=== PATIENT | female | born 1955 | race Caucasian/White ===

== ENCOUNTER 2018-02-18 12:55 | Inpatient (IN) | payer BC ==
[2018-02-18 15:26] VITALS: BMI 29.2
--- NOTE | 2018-02-18 19:20 | HP ---
CIWA Score - CIWA Score Nausea/Vomitin-No Nausea/No Vomiting Muscle Tremors: 4-Moderate,w/Arms Extend Anxiety: 5 Agitation: 5 Paroxysmal Sweats: 5 Orientation: 0-Oriented (PLACE) Tacttile Disturbances: 0-None Auditory Disturbances: 0-None Visual Disturbances: 0-None Headache: 0-None Present CIWA-Ar Total Score: 19 Admission ROS BHS - HPI Chief Complaint: C/O WITHDRAWAL SX'S. SEEKING DETOX FOR ALCOHOLISM Allergies/Adverse Reactions: Allergies Allergy/AdvReac Type Severity Reaction Status Date / Time No Known Allergies Allergy Verified 02/18/18 18:08 History of Present Illness: 62 Y.O. FEMALE WITH EXTENSIVE HX/O ALCOHOLISM HERE FOR DETOX. CLIENT IS KNOWN TO OTHER INPATIENT DETOX. LAST 4 MONTHS AGO AT [facility]. THIS IS HER FIRST TIME HERE. REFERRED BY FRIENDS. REPORTS LONGEST CLEAN TIME 4 YEARS. DENIES HX/O SEIZURES AND BLACK OUTS. UTOX + FOR JARVIS REPORTS WAS IN [facility] FOR 5 DAYS 2 WEEKS AG0 FOR INTOXICATION. CLIENT HAS NEVER STOPPED DRINKING SINCE DC AND PRESENTS INTOICATED WITH WITHDRAWAL SX'S ELAVTED B/P AND TACHYCARDIA. SHE IS MENTATING WELL BUT IS DISHEVELED MALODUROUS AND APPEARS UNKEPT. Exam Limitations: Intoxication - Ebola screening Have you traveled outside of the country in the last 21 days: No Have you had contact with anyone from an Ebola affected area: No Have you been sick,other than usual withdrawal symptoms: No Do you have a fever: No - Review of Systems Constitutional: Chills, Night Sweats, Changes in sleep EENT: reports: Other (MISSING TEETH) Respiratory: reports: No Symptoms reported Cardiac: reports: No Symptoms Reported GI: reports: No Symptoms Reported : reports: Incontinence (WHEN INTOXICATED) Musculoskeletal: reports: Back Pain Integumentary: reports: Other (VITILIGO) Neuro: reports: No Symptoms reported Endocrine: reports: Other (HX/O DM) Hematology: reports: No Symptoms Reported Psychiatric: reports: Depressed Other Systems: Reviewed and Negative Patient History - Patient Medical History Hx Anemia: No Hx Asthma: No Hx Chronic Obstructive Pulmonary Disease (COPD): No Hx Cancer: No Hx Cardiac Disorders: No Hx Congestive Heart Failure: No Hx Hypertension: Yes Hx Hypercholesterolemia: Yes Hx Pacemaker: No HX Cerebrovascular Accident: No Hx Seizures: No Hx Dementia: No Hx Diabetes: Yes Hx Gastrointestinal Disorders: No Hx Liver Disease: No Hx Genitourinary Disorders: No Hx Sexually Transmitted Disorders: No Hx Renal Disease (ESRD): No Hx Thyroid Disease: No Hx Human Immunodeficiency Virus (HIV): No Hx Hepatitis C: No Hx Depression: Yes Hx Suicide Attempt: No Hx Bipolar Disorder: No Hx Schizophrenia: No Other Medical History: DENIES - Patient Surgical History Past Surgical History: No Hx Neurologic Surgery: No Hx Cataract Extraction: No Hx Cardiac Surgery: No Hx Lung Surgery: No Hx Breast Surgery: No Hx Breast Biopsy: No Hx Abdominal Surgery: No Hx Appendectomy: No Hx Cholecystectomy: No Hx Genitourinary Surgery: No Hx Section: No Hx Orthopedic Surgery: No Anesthesia Reaction: No - PPD History Previous Implant?: Yes Documented Results: Negative w/o proof Implanted On Prior [facility] Admission?: No PPD to be Administered?: Yes - Reproductive History Patient is a Female of Child Bearing Age (11 -55 yrs old): No Patient : No (NEG C) - Smoking Cessation Smoking history: Current every day smoker Have you smoked in the past 12 months: Yes Aproximately how many cigarettes per day: 20 Cigars Per Day: 0 Hx Chewing Tobacco Use: No Initiated information on smoking cessation: No 'Breaking Loose' booklet given: 02/18/18 - Substance & Tx. History Hx Alcohol Use: Yes Hx Substance Use: Yes Substance Use Type: Alcohol Hx Substance Use Treatment: Yes ([facility]) - Substances Abused Alcohol Route: Oral Frequency: Daily Amount used: liquor- 1 pint, beer- 1 six pack Age of first use: 11 Date of Last Use: 02/18/18 Family Disease History - Family Disease History Family Disease History: Diabetes: Mother Admission Physical Exam [facility] - Vital Signs Vital Signs: Vital Signs - 24 hr 02/18/18 15:24 Temperature 96.2 F L Pulse Rate 118 H Respiratory 20 Rate Blood Pressure 142/88 - Physical General Appearance: Yes: Disheveled, Mild Distress, Intoxicated, Tremorous, Sweating, Other (UNKEPT, MALODUROUS,) HEENTM: Yes: EOMI, Normocephalic, Normal Voice, VAISHALI, Pharynx Normal, Other ( POOR DENTIITION) Respiratory: Yes: Chest Non-Tender, Lungs Clear, Normal Breath Sounds, No Respiratory Distress, No Accessory Muscle Use Neck: Yes: No masses,lesions,Nodules, Supple, Trachea in good position Breast: Yes: Breast Exam Deferred Cardiology: Yes: Regular Rhythm, Regular Rate, S1, S2, Tachycardia Abdominal: Yes: Normal Bowel Sounds, Non Tender, Soft, Protuberent Genitourinary: Yes: Within Normal Limits Back: Yes: Normal Inspection Musculoskeletal: Yes: full range of Motion, Gait Steady Extremities: Yes: Normal Range of Motion, Non-Tender, Tremors Neurological: Yes: Fully Oriented, Alert, Motor Strength 5/5, Depressed Affect Integumentary: Yes: Warm, Other (VITILIGO SOLIED SKIN SWEATY HAIR POOR SKIN TUGOR) Lymphatic: Yes: Within Normal Limits - Diagnostic (1) Alcohol dependence with uncomplicated withdrawal Current Visit: Yes Status: Acute (2) Nicotine dependence Current Visit: Yes Status: Chronic Qualifiers: Nicotine product type: cigarettes Substance use status: uncomplicated Qualified Code(s): F17.210 - Nicotine dependence, cigarettes, uncomplicated (3) HTN (hypertension) Current Visit: Yes Status: Chronic Qualifiers: Hypertension type: essential hypertension Qualified Code(s): I10 - Essential (primary) hypertension (4) HLD (hyperlipidemia) Current Visit: Yes Status: Chronic Qualifiers: Hyperlipidemia type: unspecified Qualified Code(s): E78.5 - Hyperlipidemia , unspecified (5) Diabetes Current Visit: Yes Status: Chronic Qualifiers: Diabetes mellitus type: type 2 (6) Depression Current Visit: Yes Status: Suspected (7) Vitiligo Current Visit: Yes Status: Chronic (8) Skin turgor poor Current Visit: Yes Status: Acute (9) Alcohol-induced mood disorder with depressive symptoms Current Visit: Yes Status: Suspected Cleared for Admission [facility] - Detox or Rehab [facility] Level of Care: Medically Managed Detox Regimen/Protocol: Librium Claeared for Rehab Admission: No [facility] Breath Alcohol Content Breath Alcohol Content: 0.157 Urine Pregancy Test - Result Urine Test Results: Negative- NO Line Present Urine Drug Screen - Results Drug Screen Negative: No Urine Drug Screen Results: BZO-Benzodiazepines
[2018-02-18] MEDS ORDERED: guaiFENesin/D-METHORPHAN HB 10 ML UNIT-DOSE CUPS PO PRN (19:45)
[2018-02-18] MEDS ORDERED: MAG HYDROX/AL HYDROX/SIMETH 30 ML UNIT-DOSE CUP PO PRN (19:45)
[2018-02-18] MEDS ORDERED: MAGNESIUM HYDROX 2400MG/30ML ORAL SUSPENSION 30 ML CUP PO PRN (19:45)
[2018-02-18] MEDS ORDERED: P-EPHED 60MG/TRIPROLIDI 2.5MG TABLET PO PRN (19:45)
[2018-02-18] MEDS ORDERED: MAGNESIUM CITRATE 300 ML BOTTLE PO PRN (19:45)
[2018-02-18] MEDS ORDERED: ACETAMINOPHEN 325 MG TABLET (FP) PO PRN (19:45)
[2018-02-18] MEDS ORDERED: NICOTINE POLACRILEX 2 MG GUM BC PRN (19:45)
[2018-02-18] MEDS ORDERED: MENTHOL/PHENOL 1 EACH UD MM PRN (19:45)
[2018-02-18] MEDS ORDERED: hydrOXYzine PAMOATE 50 MG CAPSULE (FP) PO PRN (19:45)
[2018-02-18] MEDS ORDERED: IBUPROFEN 400 MG TABLET (FP) PO PRN (19:45)
[2018-02-18] MEDS ORDERED: LOPERAMIDE HCL 2 MG CAPSULE PO PRN (19:45)
[2018-02-18] MEDS: chlordiazePOXIDE HCL 25 MG CAPSULE PO PRN (20:44)
[2018-02-18] MEDS: THIAMINE HCL 100 MG TABLET (FP) PO SCH (22:28)
[2018-02-18] MEDS: chlordiazePOXIDE HCL 25 MG CAPSULE PO SCH (22:28)
[2018-02-18] MEDS: ATORVASTATIN CA 20 MG TABLET (FP) PO SCH (22:28)
[2018-02-19] MEDS: chlordiazePOXIDE HCL 25 MG CAPSULE PO SCH ×4 (06:05→22:17)
[2018-02-19] MEDS: metFORMIN HCL 500 MG TABLET (FP) PO SCH (08:00)
[2018-02-19] MEDS: sitaGLIPtin PHOSPHATE 100 MG TABLET (FP) PO SCH (08:00)
[2018-02-19 10:08] LABS: ALBUMIN 3.7 g/dl (3.4-5.0); ANION GAP 12 (8-16); BLOOD UREA NITROGEN 23 mg/dL (7-18); CALCIUM 9.4 mg/dL (8.5-10.1); CHLORIDE 90 mmol/L (98-107); CO2 31 mmol/L (21-32); CREATININE 0.8 mg/dL (0.55-1.02); GLUCOSE,RANDOM 188 mg/dL (74-106); POTASSIUM 4.4 mmol/L (3.5-5.1); SGOT/AST 70 U/L (15-37); SGPT/ALT 71 U/L (12-78); SODIUM 133 mmol/L (136-145)
--- NOTE | 2018-02-19 10:08 | EKG ---
Test Reason : Blood Pressure : / mmHG Vent. Rate : 107 BPM Atrial Rate : 107 BPM P-R Int : 150 ms QRS Dur : 070 ms QT Int : 314 ms P-R-T Axes : 053 054 067 degrees QTc Int : 419 ms SINUS TACHYCARDIA NONSPECIFIC T WAVE ABNORMALITY ABNORMAL ECG NO PREVIOUS ECGS AVAILABLE Confirmed by JORGE MEDLEY MD ([id number]) on 02/19/2018 10:07:50 AM Referred By: Confirmed By:JORGE MEDLEY MD
[2018-02-19 10:10] LABS: ALK PHOS 107 U/L (45-117); BILIRUBIN,TOTAL 1.1 mg/dL (0.2-1.0); TOT PROT 6.9 g/dl (6.4-8.2)
[2018-02-19 10:11] LABS: HEMATOCRIT 39.1 % (32.4-45.2); HEMOGLOBIN 13.2 GM/dL (10.7-15.3); MCHC 33.8 g/dl (32.0-36.0); MEAN CELL VOLUME 94.5 fl (80-96); MEAN PLT VOLUME 8.5 fl (7.5-11.1); PLATELET COUNT 181 K/MM3 (134-434); RBC 4.14 M/mm3 (3.60-5.2); RDW 15.9 % (11.6-15.6); WHITE BLOOD COUNT 5.6 K/mm3 (4.0-10.0)
--- NOTE | 2018-02-19 10:11 | PN ---
BHS CIWA - CIWA Score Nausea/Vomitin Muscle Tremors: 3 Anxiety: 3 Agitation: 2 Paroxysmal Sweats: 1-Minimal Palms Moist Orientation: 0-Oriented Tacttile Disturbances: 1-Very Mild Itch/Numbness Auditory Disturbances: 1-Very Mild Visual Disturbances: 0-None Headache: 2-Mild CIWA-Ar Total Score: 16 BHS Progress Note (SOAP) Subjective: alert,irritable,anxious,interrupted sleep,tremor Objective: 02/19/18 10:08 Vital Signs Temperature 98.2 F 02/19/18 09:51 Pulse Rate 114 H 02/19/18 09:51 Respiratory Rate 18 02/19/18 09:51 Blood Pressure 135/59 02/19/18 09:51 O2 Sat by Pulse Oximetry (%) ekg sinus tachycardia 107/min qt/qtc /419 no chest pain,no sob,no dizziness Laboratory Last Values POC Glucometer 202 UNITS (80-120) 02/19/18 06:08 02/19/18 10:11 labs pending Assessment: 02/19/18 10:11 withdrawal symptom Plan: continue detox
[2018-02-19] MEDS: METOPROLOL TARTRATE 50 MG TABLET (FP) PO SCH (11:13)
[2018-02-19] MEDS: ASPIRIN 81 MG CHEWABLE TABLETS PO SCH (11:13)
[2018-02-19] MEDS: LISINOPRIL 10 MG TABLET (FP) PO SCH (11:13)
[2018-02-19] MEDS: PRENATAL VITAMINS W/ FOLIC ACID TABLET (FP) PO SCH (11:14)
[2018-02-19] MEDS: NICOTINE 21 MG/24 HOURS TOPICAL PATCH TD SCH (11:14)
--- NOTE | 2018-02-19 16:16 | CONSULT ---
[facility] Psychiatric Consult - Data Date of interview: 02/19/18 Admission source: [facility] Identifying data: Patient is a 62 year old , mother of two, domiciled, and supported by [facility]. This is patient's first admission to detox at [facility]. Pt. admitted to for alcohol dependence. Substance Abuse History: Smoking Cessation. Smoking history: Current every day smoker. Have you smoked in the past 12 months: Yes. Aproximately how many cigarettes per day: 20. Cigars Per Day: 0. Hx Chewing Tobacco Use: No. Initiated information on smoking cessation: No. 'Breaking Loose' booklet given : 02/18/18. - Substance & Tx. History. Hx Alcohol Use: Yes. Hx Substance Use : Yes. Substance Use Type: Alcohol. Hx Substance Use Treatment: Yes ([facility]). - Substances Abused. Alcohol. Route: Oral. Frequency: Daily. Amount used: liquor- 1 pint, beer- 1 six pack. Age of first use: 11. Date of Last Use: Medical History: hypertension, hypercholesterolemia, diabetes Psychiatric History: Patient denies h/o psychiatric hospitalization, outpatient care, and suicide attempt. Physical/Sexual Abuse/Trauma History: Denies. Mental Status Exam - Mental Status Exam Alert and Oriented to: Time, Place, Person Cognitive Function: Good Patient Appearance: Unkempt Mood: Euthymic Affect: Mood Congruent Patient Behavior: Cooperative Speech Pattern: Appropriate Voice Loudness: Moderately Soft/Quiet Thought Process: Goal Oriented Thought Disorder: Not Present Hallucinations: Denies Suicidal Ideation: Denies Homicidal Ideation: Denies Insight/Judgement: Poor Sleep: Fair Appetite: Fair Muscle strength/Tone: Normal Gait/Station: Normal Psychiatric Findings - Problem List ([place] 1, 2,3) (1) Alcohol dependence with uncomplicated withdrawal Current Visit: Yes Status: Acute (2) Nicotine dependence Current Visit: Yes Status: Chronic Qualifiers: Nicotine product type: cigarettes Substance use status: uncomplicated Qualified Code(s): F17.210 - Nicotine dependence, cigarettes, uncomplicated - Initial Treatment Plan Initial Treatment Plan: Psychoeducation provided. Detoxification in progress. Observation.
[2018-02-19] MEDS: MELATONIN 5 MG TABLETS PO PRN (22:17)
[2018-02-19] MEDS: THIAMINE HCL 100 MG TABLET (FP) PO SCH (22:17)
[2018-02-19] MEDS: ATORVASTATIN CA 20 MG TABLET (FP) PO SCH (22:17)
[2018-02-20] MEDS: chlordiazePOXIDE HCL 25 MG CAPSULE PO SCH ×3 (05:14→17:59)
[2018-02-20] MEDS: metFORMIN HCL 500 MG TABLET (FP) PO SCH (05:59)
[2018-02-20] MEDS: sitaGLIPtin PHOSPHATE 100 MG TABLET (FP) PO SCH (05:59)
--- NOTE | 2018-02-20 10:20 | PN ---
[facility] CIWA - CIWA Score Nausea/Vomitin Muscle Tremors: 3 Anxiety: 3 Agitation: 2 Paroxysmal Sweats: 1-Minimal Palms Moist Orientation: 0-Oriented Tacttile Disturbances: 1-Very Mild Itch/Numbness Auditory Disturbances: 1-Very Mild Visual Disturbances: 0-None Headache: 2-Mild CIWA-Ar Total Score: 16 BHS COWS - Scale Resting Pulse: 2= MT 101-120 Sweatin= Chills/Flushing Restless Observation: 3= Extraneous Movement Pupil Size: 1= Pupils >than Normal Bone or Joint Aches: 2= Severe Diffuse Aches Runny Nose/ Eye Tearin= Runny Nose/Eyes GI Upset > 30mins: 2= Nausea/Diarrhea Tremor Observation of Outstretched Hands: 2= Slight Tremor Visible Yawning Observation: 1= 1-2x During Session Anxiety or Irritability: 2=Irritable/Anxious Goose Flesh Skin: 0=Smooth Skin COWS Score: 18 S Progress Note (SOAP) Subjective: alert,irritable,anxious,interrupted sleep,tremor,pain in the body and back Objective: 02/20/18 10:19 Vital Signs Temperature 97.7 F 02/20/18 09:50 Pulse Rate 110 H 02/20/18 09:50 Respiratory Rate 18 02/20/18 09:50 Blood Pressure 104/58 02/20/18 09:50 O2 Sat by Pulse Oximetry (%) 02/20/18 10:28 Laboratory Last Values WBC 5.6 K/mm3 (4.0-10.0) 02/19/18 07:00 RBC 4.14 M/mm3 (3.60-5.2) 02/19/18 07:00 Hgb 13.2 GM/dL (10.7-15.3) 02/19/18 07:00 Hct 39.1 % (32.4-45.2) 02/19/18 07:00 MCV 94.5 fl (80-96) 02/19/18 07:00 MCH 32.0 pg (25.7-33.7) 02/19/18 07:00 MCHC 33.8 g/dl (32.0-36.0) 02/19/18 07:00 RDW 15.9 % (11.6-15.6) H 02/19/18 07:00 Plt Count 181 K/MM3 (134-434) 02/19/18 07:00 MPV 8.5 fl (7.5-11.1) 02/19/18 07:00 Sodium 133 mmol/L (136-145) L 02/19/18 07:00 Potassium 4.4 mmol/L (3.5-5.1) 02/19/18 07:00 Chloride 90 mmol/L (98-107) L 02/19/18 07:00 Carbon Dioxide 31 mmol/L (21-32) 02/19/18 07:00 Anion Gap 12 (8-16) 02/19/18 07:00 BUN 23 mg/dL (7-18) H 02/19/18 07:00 Creatinine 0.8 mg/dL (0.55-1.02) 02/19/18 07:00 Creat Clearance w eGFR > 60 (>60) 02/19/18 07:00 POC Glucometer 216 UNITS (80-120) 02/20/18 05:13 Random Glucose 188 mg/dL (74-106) H 02/19/18 07:00 Calcium 9.4 mg/dL (8.5-10.1) 02/19/18 07:00 Total Bilirubin 1.1 mg/dL (0.2-1.0) H 02/19/18 07:00 AST 70 U/L (15-37) H 02/19/18 07:00 ALT 71 U/L (12-78) 02/19/18 07:00 Alkaline Phosphatase 107 U/L (45-117) 02/19/18 07:00 Total Protein 6.9 g/dl (6.4-8.2) 02/19/18 07:00 Albumin 3.7 g/dl (3.4-5.0) 02/19/18 07:00 RPR Titer Nonreactive (NONREACTIVE) 02/19/18 07:00 HIV 1&2 Antibody Screen Negative 02/19/18 07:00 HIV P24 Antigen Negative 02/19/18 07:00 Assessment: 02/20/18 10:28 withdrawal symptom Plan: continue detox,bgm monitoring
[2018-02-20] MEDS: ASPIRIN 81 MG CHEWABLE TABLETS PO SCH (10:32)
[2018-02-20] MEDS: LISINOPRIL 10 MG TABLET (FP) PO SCH (10:32)
[2018-02-20] MEDS: NICOTINE 21 MG/24 HOURS TOPICAL PATCH TD SCH (10:32)
[2018-02-20] MEDS: METOPROLOL TARTRATE 50 MG TABLET (FP) PO SCH (10:32)
[2018-02-20] MEDS: PRENATAL VITAMINS W/ FOLIC ACID TABLET (FP) PO SCH (10:32)
[2018-02-20 14:46] LABS: URINE APPEARANCE CLOUDY; URINE BILIRUBIN NEGATIVE (<2.0 mg/dL); URINE GLUCOSE (UA) NEGATIVE (NEGATIVE); URINE KETONE NEGATIVE (NEGATIVE); URINE NITRITE NEGATIVE (NEGATIVE); URINE UROBILINOGEN NEGATIVE mg/dL (0.2-1.0)
[2018-02-20 14:48] LABS: URINE COLOR YELLOW; URINE LEUK ESTERASE 3+ (NEGATIVE); URINE PROTEIN 2+ (NEGATIVE)
[2018-02-20 16:12] LABS: URINE BACTERIA RARE /hpf (NONE SEEN)
--- NOTE | 2018-02-20 20:57 | PN ---
S Progress Note Note: c/o of dry eyes Vital Signs Temperature 98.8 F 02/20/18 17:25 Pulse Rate 66 02/20/18 17:25 Respiratory Rate 16 02/20/18 17:25 Blood Pressure 112/59 02/20/18 17:25 O2 Sat by Pulse Oximetry (%) visine PRN continue to monitor
[2018-02-20] MEDS: chlordiazePOXIDE HCL 25 MG CAPSULE PO PRN (21:20)
[2018-02-20] MEDS: THIAMINE HCL 100 MG TABLET (FP) PO SCH (22:08)
[2018-02-20] MEDS: ATORVASTATIN CA 20 MG TABLET (FP) PO SCH (22:08)
[2018-02-20] MEDS: chlordiazePOXIDE 5 MG CAPSULE PO SCH (22:08)
[2018-02-20] MEDS: MELATONIN 5 MG TABLETS PO PRN (22:10)
[2018-02-20] MEDS: TETRAHYDROZOLINE HCL EYE DROPS OU PRN (23:28)
[2018-02-21] MEDS: chlordiazePOXIDE 5 MG CAPSULE PO SCH ×3 (05:34→17:22)
[2018-02-21] MEDS: metFORMIN HCL 500 MG TABLET (FP) PO SCH (06:37)
[2018-02-21] MEDS: sitaGLIPtin PHOSPHATE 100 MG TABLET (FP) PO SCH (06:37)
[2018-02-21] MEDS: chlordiazePOXIDE HCL 25 MG CAPSULE PO PRN ×3 (08:44→20:39)
--- NOTE | 2018-02-21 09:10 | PN ---
[facility] Progress Note (SOAP) Subjective: alert,irritable,interrupted sleep, Objective: 02/21/18 09:08 Vital Signs Temperature 97.0 F L 02/21/18 06:30 Pulse Rate 65 02/21/18 06:30 Respiratory Rate 20 02/21/18 06:30 Blood Pressure 123/52 02/21/18 06:30 O2 Sat by Pulse Oximetry (%) 02/21/18 09:09 Laboratory Last Values WBC 5.6 K/mm3 (4.0-10.0) 02/19/18 07:00 RBC 4.14 M/mm3 (3.60-5.2) 02/19/18 07:00 Hgb 13.2 GM/dL (10.7-15.3) 02/19/18 07:00 Hct 39.1 % (32.4-45.2) 02/19/18 07:00 MCV 94.5 fl (80-96) 02/19/18 07:00 MCH 32.0 pg (25.7-33.7) 02/19/18 07:00 MCHC 33.8 g/dl (32.0-36.0) 02/19/18 07:00 RDW 15.9 % (11.6-15.6) H 02/19/18 07:00 Plt Count 181 K/MM3 (134-434) 02/19/18 07:00 MPV 8.5 fl (7.5-11.1) 02/19/18 07:00 Sodium 133 mmol/L (136-145) L 02/19/18 07:00 Potassium 4.4 mmol/L (3.5-5.1) 02/19/18 07:00 Chloride 90 mmol/L (98-107) L 02/19/18 07:00 Carbon Dioxide 31 mmol/L (21-32) 02/19/18 07:00 Anion Gap 12 (8-16) 02/19/18 07:00 BUN 23 mg/dL (7-18) H 02/19/18 07:00 Creatinine 0.8 mg/dL (0.55-1.02) 02/19/18 07:00 Creat Clearance w eGFR > 60 (>60) 02/19/18 07:00 POC Glucometer 241 UNITS (80-120) 02/21/18 05:36 Random Glucose 188 mg/dL (74-106) H 02/19/18 07:00 Calcium 9.4 mg/dL (8.5-10.1) 02/19/18 07:00 Total Bilirubin 1.1 mg/dL (0.2-1.0) H 02/19/18 07:00 AST 70 U/L (15-37) H 02/19/18 07:00 ALT 71 U/L (12-78) 02/19/18 07:00 Alkaline Phosphatase 107 U/L (45-117) 02/19/18 07:00 Total Protein 6.9 g/dl (6.4-8.2) 02/19/18 07:00 Albumin 3.7 g/dl (3.4-5.0) 02/19/18 07:00 Urine Color Yellow 02/20/18 10:00 Urine Appearance Cloudy 02/20/18 10:00 Urine pH 6.0 (5.0-8.0) 02/20/18 10:00 Ur Specific [place] 1.023 (1.001-1.035) 02/20/18 10:00 Urine Protein 2+ (NEGATIVE) H 02/20/18 10:00 Urine Glucose (UA) Negative (NEGATIVE) 02/20/18 10:00 Urine Ketones Negative (NEGATIVE) 02/20/18 10:00 Urine Blood Negative (NEGATIVE) 02/20/18 10:00 Urine Nitrite Negative (NEGATIVE) 02/20/18 10:00 Urine Bilirubin Negative (<2.0 mg/dL) 02/20/18 10:00 Urine Urobilinogen Negative mg/dL (0.2-1.0) 02/20/18 10:00 Ur Leukocyte Esterase 3+ (NEGATIVE) H 02/20/18 10:00 Urine WBC (Auto) 10 /hpf (3-5) 02/20/18 10:00 Urine RBC (Auto) <1 /hpf (0-3) 02/20/18 10:00 Urine Bacteria Rare /hpf (NONE SEEN) 02/20/18 10:00 RPR Titer Nonreactive (NONREACTIVE) 02/19/18 07:00 HIV 1&2 Antibody Screen Negative 02/19/18 07:00 HIV P24 Antigen Negative 02/19/18 07:00 Assessment: 02/21/18 09:09 withdrawal symptom Plan: continue detox,discharge in am
[2018-02-21] MEDS: LISINOPRIL 10 MG TABLET (FP) PO SCH (10:11)
[2018-02-21] MEDS: NICOTINE 21 MG/24 HOURS TOPICAL PATCH TD SCH (10:12)
[2018-02-21] MEDS: METOPROLOL TARTRATE 50 MG TABLET (FP) PO SCH (10:12)
[2018-02-21] MEDS: ASPIRIN 81 MG CHEWABLE TABLETS PO SCH (10:12)
[2018-02-21] MEDS: PRENATAL VITAMINS W/ FOLIC ACID TABLET (FP) PO SCH (10:12)
[2018-02-21] MEDS: TETRAHYDROZOLINE HCL EYE DROPS OU PRN (17:22)
[2018-02-21] MEDS: ATORVASTATIN CA 20 MG TABLET (FP) PO SCH (22:27)
[2018-02-21] MEDS: THIAMINE HCL 100 MG TABLET (FP) PO SCH (22:27)
[2018-02-21] MEDS: MELATONIN 5 MG TABLETS PO PRN (22:27)
[2018-02-21] MEDS: chlordiazePOXIDE HCL 10 MG CAPSULE PO SCH (22:27)
[2018-02-22] MEDS: chlordiazePOXIDE HCL 10 MG CAPSULE PO SCH ×2 (05:19→10:34)
[2018-02-22] MEDS: sitaGLIPtin PHOSPHATE 100 MG TABLET (FP) PO SCH (06:07)
[2018-02-22] MEDS: metFORMIN HCL 500 MG TABLET (FP) PO SCH (06:07)
[2018-02-22 10:05] VITALS: BP 140/85; PULSE 103; TEMP 98.4
[2018-02-22] MEDS: ASPIRIN 81 MG CHEWABLE TABLETS PO SCH (10:32)
[2018-02-22] MEDS: NICOTINE 21 MG/24 HOURS TOPICAL PATCH TD SCH (10:32)
[2018-02-22] MEDS: METOPROLOL TARTRATE 50 MG TABLET (FP) PO SCH (10:32)
[2018-02-22] MEDS: LISINOPRIL 10 MG TABLET (FP) PO SCH (10:32)
[2018-02-22] MEDS: PRENATAL VITAMINS W/ FOLIC ACID TABLET (FP) PO SCH (10:32)
--- NOTE | 2018-02-22 14:00 | DS ---
[facility] Detox Discharge Summary Admission Date: 02/18/18 Discharge Date: 02/22/18 - History Present History: Alcohol Dependence Pertinent Past History: DM, HTN,HLD and depression - Physical Exam Results Vital Signs: Vital Signs Temperature 98.4 F 02/22/18 10:04 Pulse Rate 103 H 02/22/18 10:04 Respiratory Rate 18 02/22/18 10:04 Blood Pressure 140/85 02/22/18 10:04 O2 Sat by Pulse Oximetry (%) Pertinent Admission Physical Exam Findings: Withdrawal sx Laboratory Last Values WBC 5.6 K/mm3 (4.0-10.0) 02/19/18 07:00 RBC 4.14 M/mm3 (3.60-5.2) 02/19/18 07:00 Hgb 13.2 GM/dL (10.7-15.3) 02/19/18 07:00 Hct 39.1 % (32.4-45.2) 02/19/18 07:00 MCV 94.5 fl (80-96) 02/19/18 07:00 MCH 32.0 pg (25.7-33.7) 02/19/18 07:00 MCHC 33.8 g/dl (32.0-36.0) 02/19/18 07:00 RDW 15.9 % (11.6-15.6) H 02/19/18 07:00 Plt Count 181 K/MM3 (134-434) 02/19/18 07:00 MPV 8.5 fl (7.5-11.1) 02/19/18 07:00 Sodium 133 mmol/L (136-145) L 02/19/18 07:00 Potassium 4.4 mmol/L (3.5-5.1) 02/19/18 07:00 Chloride 90 mmol/L (98-107) L 02/19/18 07:00 Carbon Dioxide 31 mmol/L (21-32) 02/19/18 07:00 Anion Gap 12 (8-16) 02/19/18 07:00 BUN 23 mg/dL (7-18) H 02/19/18 07:00 Creatinine 0.8 mg/dL (0.55-1.02) 02/19/18 07:00 Creat Clearance w eGFR > 60 (>60) 02/19/18 07:00 POC Glucometer 183 UNITS (80-120) 02/22/18 05:20 Random Glucose 188 mg/dL (74-106) H 02/19/18 07:00 Calcium 9.4 mg/dL (8.5-10.1) 02/19/18 07:00 Total Bilirubin 1.1 mg/dL (0.2-1.0) H 02/19/18 07:00 AST 70 U/L (15-37) H 02/19/18 07:00 ALT 71 U/L (12-78) 02/19/18 07:00 Alkaline Phosphatase 107 U/L (45-117) 02/19/18 07:00 Total Protein 6.9 g/dl (6.4-8.2) 02/19/18 07:00 Albumin 3.7 g/dl (3.4-5.0) 02/19/18 07:00 Urine Color Yellow 02/20/18 10:00 Urine Appearance Cloudy 02/20/18 10:00 Urine pH 6.0 (5.0-8.0) 02/20/18 10:00 Ur Specific [place] 1.023 (1.001-1.035) 02/20/18 10:00 Urine Protein 2+ (NEGATIVE) H 02/20/18 10:00 Urine Glucose (UA) Negative (NEGATIVE) 02/20/18 10:00 Urine Ketones Negative (NEGATIVE) 02/20/18 10:00 Urine Blood Negative (NEGATIVE) 02/20/18 10:00 Urine Nitrite Negative (NEGATIVE) 02/20/18 10:00 Urine Bilirubin Negative (<2.0 mg/dL) 02/20/18 10:00 Urine Urobilinogen Negative mg/dL (0.2-1.0) 02/20/18 10:00 Ur Leukocyte Esterase 3+ (NEGATIVE) H 02/20/18 10:00 Urine WBC (Auto) 10 /hpf (3-5) 02/20/18 10:00 Urine RBC (Auto) <1 /hpf (0-3) 02/20/18 10:00 Urine Bacteria Rare /hpf (NONE SEEN) 02/20/18 10:00 RPR Titer Nonreactive (NONREACTIVE) 02/19/18 07:00 HIV 1&2 Antibody Screen Negative 02/19/18 07:00 HIV P24 Antigen Negative 02/19/18 07:00 Labs noted - Treatment Hospital Course: Detox Protocol Followed, Detoxed Safely, Responded well, Discharged Condition Good - Medication Discharge Medications: Ambulatory Orders Aspirin [ASA -] 81 mg PO DAILY 02/18/18 Lisinopril [Prinivil -] 10 mg PO DAILY 02/18/18 Metoprolol Tartrate [Lopressor -] 50 mg PO DAILY 02/18/18 Simvastatin [Zocor -] 40 mg PO HS 02/18/18 Sitagliptin Phosphate [Januvia -] 100 mg PO DAILY 02/18/18 metFORMIN HCL [Metformin HCl] 500 mg PO DAILY 02/18/18 - Diagnosis (1) Alcohol dependence with uncomplicated withdrawal Current Visit: Yes Status: Acute (2) DM2 (diabetes mellitus, type 2) Current Visit: Yes Status: Acute (3) HLD (hyperlipidemia) Current Visit: Yes Status: Chronic Qualifiers: Hyperlipidemia type: unspecified Qualified Code(s): E78.5 - Hyperlipidemia , unspecified (4) HTN (hypertension) Current Visit: Yes Status: Chronic Qualifiers: Hypertension type: essential hypertension Qualified Code(s): I10 - Essential (primary) hypertension (5) Nicotine dependence Current Visit: Yes Status: Chronic Qualifiers: Nicotine product type: cigarettes Substance use status: uncomplicated Qualified Code(s): F17.210 - Nicotine dependence, cigarettes, uncomplicated (6) Alcohol-induced mood disorder with depressive symptoms Current Visit: Yes Status: Suspected - AMA Did Patient Leave Against Medical Advice: No
== END 2018-02-22 13:10 | disposition home or self-care (01) | DRG 775 ==
LOC: EDSEX → YASAS 12:55 → Y6N 19:10
PROVIDERS: ADMIT Surgery; ATTEND Surgery
PROC: HZ2ZZZZ Detoxification Services for Substance Abuse Treatment (ICD-10-PCS; principal; 2018-02-18)
DX: F10.230 Alcohol dependence with withdrawal, uncomplicated (principal); F17.210 Nicotine dependence, cigarettes, uncomplicated; F10.24 Alcohol dependence with alcohol-induced mood disorder; F32.9 Major depressive disorder, single episode, unspecified; I10 Essential (primary) hypertension; E11.9 Type 2 diabetes mellitus without complications; Z79.84 Long term (current) use of oral hypoglycemic drugs; L80 Vitiligo; R23.8 Other skin changes; Z79.82 Long term (current) use of aspirin
CPT/HCPCS: 36415; 80053; 81003; 81015; 82962; 85027; 86593; 87389; 93005; 93010